=== PATIENT | male | born 1950 | race Caucasian/White ===

== ENCOUNTER 2020-06-28 09:00 | Inpatient (IN) | payer OTHER ==
[~2020-06-28] VITALS: Ht 180.3 cm; Wt 97.2 kg
[2020-07-12 15:54] LABS: BASOPHILS % (AUTO) 0.7 % (0.0-5.0); EOSINOPHILS % (AUTO) 1.7 % (0.0-8.0); HEMATOCRIT 40.8 % (42-54); LYMPHOCYTES % (AUTO) 21.5 % (21.0-51.0); MEAN CORPUSCULAR HEMOGLOBIN 28.8 pg (27.0-33.0); MEAN CORPUSCULAR HGB CONC 32.8 g/dL (32.0-36.0); MEAN CORPUSCULAR VOLUME 87.7 fL (79-99); MONOCYTES % (AUTO) 10.6 % (3.0-13.0); NEUTROPHILS % (AUTO) 65.2 % (40.0-77.0); PLATELET COUNT (AUTO) 187 K/uL (130-400); RED BLOOD CELL COUNT(AUTO) 4.65 MIL/uL (4.50-6.20); RED CELL DISTRIBUTION WIDTH 13.7 % (11.0-15.5); WHITE BLOOD COUNT (AUTO) 6.1 K/uL (4.8-10.8)
[2020-07-12 16:00] LABS: APPEARANCE,URINE Clear (CLEAR); BILIRUBIN,URINE Negative (NEGATIVE); COLOR,URINE Yellow (YELLOW); GLUCOSE, URINE (UA) Negative (NEGATIVE); KETONES,URINE Trace mg/dL (NEGATIVE); LEUKOCYTE ESTERASE ,URINE Negative (NEGATIVE); NITRATE,URINE Negative (NEGATIVE); OCCULT BLOOD,URINE Negative (NEGATIVE); PH,URINE 6.5 (5.0-8.0); PROTEIN,URINE Negative (NEGATIVE)
[2020-07-12 16:02] LABS: POTASSIUM 4.2 mmol/L (3.5-5.1)
[2020-07-12 16:07] LABS: INR 0.97 (0.85-1.15); PROTHROMBIN TIME 10.6 SEC (9.6-11.6)
[2020-07-13 12:30] VITALS: BP 151/84
[2020-07-16] VITALS (20 sets, daily range): BP systolic 135–165; BP diastolic 71–110
[2020-07-16] MEDS ORDERED: CEFAZOLIN SODIUM 1 GM VIAL IVP SCH (06:00)
[2020-07-16] MEDS ORDERED: ROPIVACAINE 0.5% 5MG/ML 30ML IJ ONE (09:00)
[2020-07-16] MEDS ORDERED: LIDOCAINE PF 2% 5ML ABBOJECT ONE (09:04)
[2020-07-16] MEDS ORDERED: SUCCINYLCHOLINE CHLORIDE 20 MG/ML 10 ML VIAL ONE (09:04)
[2020-07-16] MEDS ORDERED: ROCURONIUM 10MG/1ML SYR 10 MG/ML ML ONE (09:05)
[2020-07-16] MEDS ORDERED: PROPOFOL 10 MG/ML 20ML VIAL IV ONE (09:05)
[2020-07-16] MEDS ORDERED: FENTANYL CITRATE PF 50 MCG/1 ML 2ML VIAL ONE (09:05)
[2020-07-16] MEDS ORDERED: TRAM100T40 PO (09:16)
[2020-07-16] MEDS ORDERED: LACTATED RINGERS 1000ML 1,000 ML IV ONE (09:20)
[2020-07-16] MEDS ORDERED: CELECOXIB 200 MG CAP ONE (09:23)
[2020-07-16] MEDS ORDERED: KETOROLAC TROMETHAMINE 15MG/ML ONE (09:23)
[2020-07-16] MEDS ORDERED: ACETAMINOPHEN EXTRA STRENGTH 500 MG TABLET ONE (09:23)
[2020-07-16] MEDS ORDERED: TRANEXAMIC ACID 1000MG/10ML ONE ×2 (09:23→13:10)
[2020-07-16] MEDS ORDERED: VANCOMYCIN HCL 1 GM VIAL ONE (09:25)
[2020-07-16] MEDS ORDERED: GLYCOPYRROLATE 1 MG/5 ML SYRINGE ONE (10:18)
[2020-07-16] MEDS ORDERED: SODIUM CHLORIDE 0.9% 10 ML VIAL ONE (10:21)
[2020-07-16] MEDS ORDERED: PHENYLEPHRINE HCL 10 MG/ML 1ML VIAL IV ONE (10:21)
[2020-07-16] MEDS ORDERED: CEFAZOLIN SODIUM 1 GM VIAL ONE (10:51)
[2020-07-16] MEDS ORDERED: NEOSTIGMINE 5MG/5ML SYR IV ONE (12:11)
[2020-07-16] MEDS ORDERED: KETOROLAC TROMETHAMINE 30MG/ML ONE (12:19)
[2020-07-16] MEDS ORDERED: DiphenhydrAMINE HCL 50 MG/ML VIAL IVP PRN (12:30)
[2020-07-16] MEDS ORDERED: FERROUS FUMARATE 324 MG TABLET PO PRN (12:30)
[2020-07-16] MEDS ORDERED: LIDOCAINE HCL-MPF 1% 2ML VIAL IV PRN (12:30)
[2020-07-16] MEDS ORDERED: CALCIUM CARBONATE 500 MG TABLET PO PRN (12:30)
[2020-07-16] MEDS ORDERED: OXYCODONE HCL 5 MG TAB PO PRN (12:30)
[2020-07-16] MEDS ORDERED: SODIUM CHLORIDE 0.9% 1000ML 1,000 ML IV SCH (12:30)
[2020-07-16] MEDS ORDERED: ONDANSETRON HCL 4 MG/2 ML VIAL IVP PRN (12:30)
[2020-07-16] MEDS: ACETAMINOPHEN EXTRA STRENGTH 500 MG TABLET PO SCH ×2 (12:30→20:36)
[2020-07-16] MEDS ORDERED: POTASSIUM CHLORIDE 20 MEQ ERTAB PO PRN (12:30)
[2020-07-16] MEDS ORDERED: POTASSIUM CHLORIDE 20MEQ/100ML 100 ML IV PRN (12:30)
[2020-07-16] MEDS ORDERED: TRAMADOL HCL 50 MG TABLET PO PRN (12:30)
[2020-07-16] MEDS ORDERED: POTASSIUM CHLORIDE 10% ELIXIR 20 MEQ/15 ML UDCUP PO PRN (12:30)
[2020-07-16] MEDS ORDERED: TEMAZEPAM 15 MG CAPSULE PO PRN (12:30)
[2020-07-16 14:26] LABS: SPECIMENTYPE,BODY FLUID SYNOVIAL
[2020-07-16 14:27] LABS: APPEARANCE BODY FLUID CLOUDY (CLEAR); COLOR,BODY FLUID LT YELLOW (LT YELLOW); TOTAL VOLUME,BODY FLUID 0.5 mL
[2020-07-16 14:28] LABS: BODY FLUID RBC 4875 /cu. mm.; BODY FLUID WBC 28 /cu. mm.
[2020-07-16] MEDS: OXYCODONE HCL 5 MG TAB PO PRN (14:31)
[2020-07-16 14:34] LABS: BF LYMPHOCYTE 87 %; BF MONOCYTE 2 %
[2020-07-16] MEDS: CEFAZOLIN SODIUM 1 GM VIAL IVP SCH (17:55)
[2020-07-16 18:53] LABS: CRYSTALS, SYNOVIAL FLUID SEE SEPARATE REPORT
[2020-07-16] MEDS ORDERED: UREA 20% (19:10)
[2020-07-16] MEDS ORDERED: OXYB5TAB15 PO (19:10)
[2020-07-16] MEDS ORDERED: DEXAMETHASONE SD (19:10)
[2020-07-16] MEDS ORDERED: TRAZ-187 PO (19:10)
[2020-07-16] MEDS: CELECOXIB 200 MG CAP PO SCH (20:35)
[2020-07-16] MEDS: ASPIRIN 81MG TAB.CHEW PO SCH (20:36)
[2020-07-16] MEDS: FAMOTIDINE 20MG TAB 20 MG TAB PO SCH (20:36)
[2020-07-16] MEDS: PREGABALIN 25 MG CAP PO SCH (20:36)
[2020-07-17] MEDS: CEFAZOLIN SODIUM 1 GM VIAL IVP SCH (01:32)
[2020-07-17 03:53] VITALS: BP 146/75
[2020-07-17] MEDS: ACETAMINOPHEN EXTRA STRENGTH 500 MG TABLET PO SCH ×3 (04:07→20:21)
[2020-07-17 05:57] LABS: HEMATOCRIT 32.1 % (42-54); MEAN CORPUSCULAR HEMOGLOBIN 28.5 pg (27.0-33.0); MEAN CORPUSCULAR HGB CONC 32.7 g/dL (32.0-36.0); MEAN CORPUSCULAR VOLUME 87.2 fL (79-99); RED BLOOD CELL COUNT(AUTO) 3.68 MIL/uL (4.50-6.20); RED CELL DISTRIBUTION WIDTH 13.8 % (11.0-15.5); WHITE BLOOD COUNT (AUTO) 7.4 K/uL (4.8-10.8)
[2020-07-17 06:03] LABS: CREATININE 0.9 mg/dL (0.5-1.5); POTASSIUM 3.9 mmol/L (3.5-5.1)
[2020-07-17] MEDS ORDERED: APPL SD SCH (09:00)
[2020-07-17] MEDS ORDERED: UREA 20% SCH (09:00)
[2020-07-17 09:31] VITALS: BP 136/62
[2020-07-17] MEDS: CELECOXIB 200 MG CAP PO SCH ×2 (11:14→20:20)
[2020-07-17] MEDS: TAMSULOSIN HCL 0.4 MG CAP.ER.24H PO SCH (11:14)
[2020-07-17] MEDS: OXYBUTYNIN CHLORIDE 5 MG TABLET PO SCH (11:14)
[2020-07-17] MEDS: ASPIRIN 81MG TAB.CHEW PO SCH ×2 (11:14→20:20)
[2020-07-17] MEDS: PREGABALIN 25 MG CAP PO SCH ×2 (11:14→20:20)
[2020-07-17] MEDS: POLYETHYLENE GLYCOL 3350 17 GM POWD.PACK PO SCH (11:15)
[2020-07-17] MEDS: FAMOTIDINE 20MG TAB 20 MG TAB PO SCH ×2 (11:15→20:20)
[2020-07-17] MEDS: DEXAMETHASONE TP SCH (11:15)
[2020-07-17] MEDS: Urea 20% Cream TP SCH ×2 (11:15→20:21)
[2020-07-17] MEDS: OXYCODONE HCL 5 MG TAB PO PRN (11:17)
[2020-07-17] MEDS ORDERED: SERTRALINE PO (12:59)
[2020-07-17 14:19] VITALS: BP_SYST 130; BP_SYST 132; BP_DIAS 71; BP_DIAS 81
[2020-07-17] MEDS ORDERED: SERT-439 PO (16:14)
[2020-07-17] MEDS ORDERED: SERTRALINE HCL 50 MG TABLET ONE (16:17)
[2020-07-17] MEDS ORDERED: SERTRALINE HCL 50 MG TABLET PO PRN (16:47)
[2020-07-17] MEDS: SERTRALINE HCL 50 MG TABLET PO SCH (17:15)
[2020-07-17] MEDS: KETOROLAC TROMETHAMINE 15MG/ML IV PRN (18:02)
[2020-07-17 19:30] VITALS: BP 142/74
[2020-07-17 23:30] VITALS: BP 143/80
[2020-07-18] MEDS: ACETAMINOPHEN EXTRA STRENGTH 500 MG TABLET PO SCH ×3 (03:45→21:02)
[2020-07-18 04:56] VITALS: BP 140/78
[2020-07-18 07:43] VITALS: BP 132/68
[2020-07-18] MEDS: PREGABALIN 25 MG CAP PO SCH ×2 (09:00→21:01)
[2020-07-18] MEDS: Urea 20% Cream TP SCH ×2 (09:00→21:00)
[2020-07-18] MEDS: DEXAMETHASONE TP SCH (09:00)
[2020-07-18] MEDS: POLYETHYLENE GLYCOL 3350 17 GM POWD.PACK PO SCH (10:04)
[2020-07-18] MEDS: OXYBUTYNIN CHLORIDE 5 MG TABLET PO SCH (10:04)
[2020-07-18] MEDS: SERTRALINE HCL 50 MG TABLET PO SCH (10:04)
[2020-07-18] MEDS: FAMOTIDINE 20MG TAB 20 MG TAB PO SCH ×2 (10:04→21:02)
[2020-07-18] MEDS: CELECOXIB 200 MG CAP PO SCH ×2 (10:04→21:02)
[2020-07-18] MEDS: TAMSULOSIN HCL 0.4 MG CAP.ER.24H PO SCH (10:04)
[2020-07-18] MEDS: ASPIRIN 81MG TAB.CHEW PO SCH ×2 (10:04→21:01)
[2020-07-18] MEDS: KETOROLAC TROMETHAMINE 15MG/ML IV PRN (10:32)
[2020-07-18 11:05] VITALS: BP 116/70
[2020-07-18 16:22] VITALS: BP 110/63
[2020-07-18 19:32] VITALS: BP 137/75
[2020-07-18 23:31] VITALS: BP 149/73
[2020-07-19 03:11] VITALS: BP 141/63
[2020-07-19] MEDS: ACETAMINOPHEN EXTRA STRENGTH 500 MG TABLET PO SCH ×3 (05:09→22:40)
[2020-07-19 08:00] VITALS: BP 149/72
[2020-07-19] MEDS: Urea 20% Cream TP SCH ×2 (08:23→21:00)
[2020-07-19] MEDS: DEXAMETHASONE TP SCH (08:23)
[2020-07-19] MEDS: CELECOXIB 200 MG CAP PO SCH ×2 (10:10→22:39)
[2020-07-19] MEDS: PREGABALIN 25 MG CAP PO SCH ×2 (10:10→22:39)
[2020-07-19] MEDS: OXYBUTYNIN CHLORIDE 5 MG TABLET PO SCH (10:10)
[2020-07-19] MEDS: SERTRALINE HCL 50 MG TABLET PO SCH (10:10)
[2020-07-19] MEDS: FAMOTIDINE 20MG TAB 20 MG TAB PO SCH ×2 (10:10→22:39)
[2020-07-19] MEDS: TAMSULOSIN HCL 0.4 MG CAP.ER.24H PO SCH (10:11)
[2020-07-19] MEDS: POLYETHYLENE GLYCOL 3350 17 GM POWD.PACK PO SCH (10:11)
[2020-07-19] MEDS: ASPIRIN 81MG TAB.CHEW PO SCH ×2 (10:11→22:39)
[2020-07-19 11:00] VITALS: BP 141/70
[2020-07-19] MEDS ORDERED: BISACODYL 10 MG SUPP.RECT RC PRN (12:30)
[2020-07-19 16:48] VITALS: BP 143/76
[2020-07-19 19:11] VITALS: BP 135/73
[2020-07-20] VITALS: BP 133/69
[2020-07-20 04:00] VITALS: BP 128/65
[2020-07-20] MEDS: ACETAMINOPHEN EXTRA STRENGTH 500 MG TABLET PO SCH ×2 (05:49→12:30)
[2020-07-20] MEDS: DEXAMETHASONE TP SCH (09:00)
[2020-07-20] MEDS: Urea 20% Cream TP SCH (09:00)
[2020-07-20] MEDS: CELECOXIB 200 MG CAP PO SCH ×2 (10:12→21:25)
[2020-07-20] MEDS: OXYBUTYNIN CHLORIDE 5 MG TABLET PO SCH (10:12)
[2020-07-20] MEDS: TAMSULOSIN HCL 0.4 MG CAP.ER.24H PO SCH (10:12)
[2020-07-20] MEDS: ASPIRIN 81MG TAB.CHEW PO SCH ×2 (10:12→21:25)
[2020-07-20] MEDS: FAMOTIDINE 20MG TAB 20 MG TAB PO SCH ×2 (10:12→21:25)
[2020-07-20] MEDS: PREGABALIN 25 MG CAP PO SCH ×2 (10:13→21:25)
[2020-07-20] MEDS: POLYETHYLENE GLYCOL 3350 17 GM POWD.PACK PO SCH (10:13)
[2020-07-20] MEDS: SERTRALINE HCL 50 MG TABLET PO SCH (10:13)
[2020-07-20 11:57] VITALS: BP 109/55
[2020-07-20 16:00] VITALS: BP 131/95
[2020-07-20] MEDS ORDERED: ACET-2743 PO (17:34)
[2020-07-20] MEDS ORDERED: TRAM100T40 PO (17:34)
[2020-07-20] MEDS ORDERED: ASPI-1005 PO (17:34)
[2020-07-20 19:45] VITALS: BP 137/65
[2020-07-20 23:35] VITALS: BP 127/72
== END 2020-07-20 23:35 | DRG 465 ==
LOC: EDSTATUS 09:00 → DAHIP 07-16 07:18 → 3AH 07-16 14:02
PROVIDERS: ADMIT Orthopaedic Surgery; ATTEND Orthopaedic Surgery
PROC: 0SPC09Z Removal of Liner from Right Knee Joint, Open Approach (ICD-10-PCS; 2020-07-16)
PROC: 0SUV09Z Supplement Right Knee Joint, Tibial Surface with Liner, Open Approach (ICD-10-PCS; 2020-07-16)
PROC: 0SPC0NZ Removal of Patellofemoral Synthetic Substitute from Right Knee Joint, Open Approach (ICD-10-PCS; principal; 2020-07-16 11:02)
PROC: 0SRC0N9 Replacement of Right Knee Joint with Patellofemoral Synthetic Substitute, Cemented, Open Approach (ICD-10-PCS; 2020-07-16 11:02)
DX: T84.092A Other mechanical complication of internal right knee prosthesis, initial encounter (principal); F41.1 Generalized anxiety disorder; D64.9 Anemia, unspecified; M25.361 Other instability, right knee; Z96.653 Presence of artificial knee joint, bilateral; G89.29 Other chronic pain; Y83.8 Other surgical procedures as the cause of abnormal reaction of the patient, or of later complication, without mention of misadventure at the time of the procedure; Y92.89 Other specified places as the place of occurrence of the external cause
CPT/HCPCS: 36415; 80048; 81003; 85025; 85027; 85610; 87070; 87076; 87205; 89051; 89060; 97039; G0378; J0330; J0690; J1200; J1885; J2001; J2370; J2704; J2710; J2795; J3010; J3370; J3490; J7120; U0003